=== PATIENT | female | born 1930 | race Caucasian/White ===

== ENCOUNTER 2018-10-18 09:20 | Inpatient (IN) | payer OTHER ==
[~2018-10-18] VITALS: Ht 149.9 cm; Wt 46.6 kg
[2018-10-18 09:21] VITALS: BP 186/81
[2018-10-18 09:56] LABS: ABSOLUTE NEUTROPHILS 5.7 thou/uL (1.4-8.2); BASOPHILS 0.8 % (0.0-2.0); EOSINOPHILS 1.8 % (0.0-3.0); HEMATOCRIT 42.1 % (37.0-47.0); LYMPHOCYTES 21.9 % (24.0-44.0); MCH 30.4 pg (26.0-34.0); MCHC 33.2 g/dL (28.0-37.0); MCV 91.5 fL (80.0-100.0); MONOCYTES 5.5 % (1.0-8.0); PLATELET COUNT 322 thou/uL (150-400); RBC 4.61 mil/uL (4.20-5.00); RDW 16.9 % (10.5-14.5); WBC 8.2 thou/uL (4.0-11.0)
[2018-10-18 09:57] LABS: URINE BILIRUBIN NEGATIVE (Negative); URINE BLOOD 1+ (Negative); URINE CLARITY CLOUDY; URINE COLOR YELLOW; URINE GLUCOSE-RANDOM* NEGATIVE (Negative); URINE KETONES NEGATIVE (Negative); URINE LEUKOCYTES 3+ (Negative); URINE NITRITE POSITIVE (Negative); URINE PROTEIN (DIPSTICK) TRACE (Negative); URINE UROBILINOGEN 0.2 E.U./dl (0.2-1.0)
[2018-10-18 10:04] LABS: CALCIUM 9.7 mg/dL (8.5-10.1); CREATININE 0.8 mg/dL (0.6-1.0); POTASSIUM 4.3 mmol/L (3.5-5.1)
[2018-10-18] MEDS ORDERED: ASPIR 8181 MG PO (10:06)
[2018-10-18] MEDS ORDERED: LIPITOR40 MG PO (10:06)
[2018-10-18] MEDS ORDERED: SIMETHICONE1 ML PO (10:07)
[2018-10-18] MEDS ORDERED: UNICOMPLEX M TA1 TA1 PO (10:08)
[2018-10-18] MEDS ORDERED: JUVEN PACKET1 EAC1 PO (10:08)
[2018-10-18] MEDS ORDERED: SENNA8.6 MG PO (10:08)
[2018-10-18] MEDS ORDERED: BACLOFEN 10MG T10 MG PO (10:09)
[2018-10-18] MEDS ORDERED: VITAMINC500 PO (10:09)
[2018-10-18] MEDS ORDERED: TRAMADOL 50 MG50 MG PO (10:09)
[2018-10-18] MEDS ORDERED: APAP650 PO (10:09)
[2018-10-18 10:10] LABS: ALBUMIN 3.2 g/dL (3.4-5.0); TOTAL BILIRUBIN 0.2 mg/dL (<0.1-1.0); TOTAL PROTEIN 8.4 g/dL (6.4-8.2)
[2018-10-18] MEDS ORDERED: FLORASTOR250 MG PO (10:10)
[2018-10-18] MEDS ORDERED: RISPERDAL0.5 MG PO (10:10)
[2018-10-18] MEDS ORDERED: REMERON15 MG PO (10:10)
[2018-10-18] MEDS ORDERED: NORVASC5 MG PO (10:11)
[2018-10-18] MEDS ORDERED: PEPCID20 MG PO (10:11)
[2018-10-18 10:14] LABS: SQUAMOUS 4-10 Moderate /LPF (0-3); TRANSITIONAL EPITHEL CELL 0-3 Few /LPF (None Seen); URINE WBC >25 Many /HPF (0-5)
[2018-10-18 10:15] LABS: BACTERIA >30 Many /HPF (None Seen); CRYSTALS None Seen /LPF (None Seen); URINE RBC None Seen /HPF (0-2)
[2018-10-18 10:23] LABS: CASTS None Seen /LPF (None Seen)
--- NOTE | 2018-10-18 12:37 | EKG ---
[place] [address] [facility] [place] [address] ELECTROCARDIOGRAM REPORT Name: MINNIE FERRARA Room #: 170-3 ADM IN .R.#: [id number] ������������������ Admission: 10/18/18 ������������������ Attend Phys: Danny Abdalla MD Discharge: ������������������ Date of : 34 Report #: [id number] ����������������������������������������������������������������� [id number] THIS REPORT FOR: //name// [facility] ED Test Date: 2018-10-18 Test Time: 10:29:33 Pat Name: MINNIE FERRARA Department: Room: Gender: F State Assessed Properties Director: TSTPHONG : 1930 Requested By: Bonny Schulte Order Number: [id number] MD: Gil Delaney Measurements Intervals [place] Rate: 65 P: 7 OR: 156 QRS: -1 QRSD: 91 T: 33 QT: 391 QTc: 407 Interpretive Statements Sinus rhythm Atrial premature complexes Poor R wave progression No previous ECG available for comparison Electronically Signed On 10-18-2018 12:36:57 CDT by Gil Delaney [email or web address] ��������������������������������������������� <ELECTRONICALLY SIGNED> ���������������������������������������� By: Gil Delaney MD, [facility] ��������������������������������������������� 10/18/18 1236 1029 28 Gil Delaney MD, FACC /EPI
--- NOTE | 2018-10-18 14:34 | EKG ---
[address] [address] ELECTROCARDIOGRAM REPORT Name: ALEMMINNIE Guillen Room #: 170-3 ADM IN M.R.#: [id number] ������������������ Admission: 10/18/18 ������������������ Attend Phys: Danny Abdalla MD Discharge: ������������������ Date of : 34 Report #: [id number] ����������������������������������������������������������������� [id number] THIS REPORT FOR: //name// [facility] ED Test Date: 2018-10-18 Test Time: 14:09:31 Pat Name: MINNIE FERRARA Department: Room: 170 3 Gender: F Assistant Corporation Counsel: pretty : 1930 Requested By: Zahraa Sanchez Order Number: [id number] MD: Rj Adams Measurements Intervals [place] Rate: 154 P: 0 AR: 73 QRS: -10 QRSD: 87 T: 45 QT: 279 QTc: 447 Interpretive Statements Supraventricular tachycardia Abnormal R-wave progression, late transition Compared to ECG 10/18/2018 10:29:33 Sinus rhythm no longer present Atrial premature complex(es) no longer present Poor R-wave progression no longer present Electronically Signed On 10-18-2018 14:33:45 CDT by Rj Adams [email or web address] ��������������������������������������������� <ELECTRONICALLY SIGNED> ���������������������������������������� By: Rj Adams MD ��������������������������������������������� 10/18/18 1433 1409 1409 Rj Adams MD /EPI
[2018-10-18 17:20] VITALS: BP 145/82
[2018-10-18 17:25] VITALS: BP 167/66
--- NOTE | 2018-10-18 18:44 | NUR ---
TO UNIT FROM Rick, ACCOMPANIED BY SAMUEL AND ALEX MCKEE. REPORT FROM RAFI. PATIENT DENIES PAIN BUT YELLS OUT SPORADICALLY AND THEN DENYING NEEDS. POSITIONED FOR COMFORT. DARYL TOVAR. WILL REPORT TO ALEX KNOX.
[2018-10-18 19:07] VITALS: BP 151/64
[2018-10-18 19:10] VITALS: BP 151/64
[2018-10-19 00:12] VITALS: BP 116/62
[2018-10-19 01:00] VITALS: BP 116/62
--- NOTE | 2018-10-19 02:47 | NUR ---
ASSUMED PT CARE AT SHIFT CHANGE. PT CONFUSED, ORIENTED TO SELF AND OCCASIONALLY TO PLACE. NO COMPLAINTS OF SOB. PT COMPLAINED OF LEFT HEEL PAIN, PAIN MEDICATION GIVEN WHICH SEEMED TO HELP. ADMISSION COMPLETED. UNABLE TO RECONCILE MEDS WITH PATIENT. FALL PRECAUTIONS IN PLACE. CLOSE TO NURSING STATION FOR CLOSE MONITORING. PT RESTED WELL THROUGH THE NIGHT. [id number], HOURLY ROUNDING. AFIB ON THE MONITOR, CONVERTED TEMPORARILY TO SR. CARDIZEM DRIP MAINTAINED. VITAL SIGNS REMAIN STABLE. ASSESSMENT CHARTED. WILL CONTINUE TO MONITOR.
[2018-10-19 04:01] LABS: ALBUMIN 2.7 g/dL (3.4-5.0); CALCIUM 9.4 mg/dL (8.5-10.1); CREATININE 0.6 mg/dL (0.6-1.0); MAGNESIUM 1.8 mg/dL (1.8-2.4); POTASSIUM 3.8 mmol/L (3.5-5.1); TOTAL BILIRUBIN 0.4 mg/dL (<0.1-1.0); TOTAL PROTEIN 7.1 g/dL (6.4-8.2)
[2018-10-19 04:08] LABS: CHOLESTEROL 137 mg/dL (<200); HDL CHOLESTEROL 42 mg/dL (>40); LDL CHOLESTEROL 66 mg/dL (<100); SERUM ASSESSMENT Slight Lipemia; TC:HDL 3.3 Ratio (Not establshd); TRIGLYCERIDE 147 mg/dL (<150); VLDL 29 mg/dL (<40)
[2018-10-19 04:57] VITALS: BP 113/44
[2018-10-19 07:00] VITALS: BP 138/56
--- NOTE | 2018-10-19 09:57 | 2DMMODE ---
[facility] [address] [place] [address] 2 D/M-MODE ECHOCARDIOGRAM Name: ALIZE FERRARAHERIBERTO Guillen Room #: 202-P [facility]#: [id number] ������������� Admission: 10/18/18 ������������� Attend Phys: Danny Abdalla MD Discharge: ��� ������������� ��� Date of : 34 Date of Service: 10/19/18 0957 �� Report #: [id number] �������� ��������������������������������������������[id number] THIS REPORT FOR: //name// APPROVED REPORT Study performed: 10/19/2018 08:52:57 EXAM: Comprehensive 2D, Doppler, and color-flow Echocardiogram Patient Location: In-Patient Room #: 202 Status: routine BSA: 1.37 HR: 62 bpm BP: 113/44 mmHg Rhythm: Atrial Flutter Other Information Study Quality: Adequate Indications Syncope 2D Dimensions RVDd: 31.66 mm IVSd: 12.76 (7-11mm) LVOT Diam: 18.56 (18-24mm) LVDd: 32.78 mm PWd: 13.23 (7-11mm) Ascending Ao: 31.07 (22-36mm) LVDs: 18.86 (25-40mm) Aortic Root: 29.70 mm IVC: 14.00 mm Volumes Left Atrial Volume (Systole) Single Plane 4CH: 58.42 mL Single Plane 2CH: 65.90 mL LA ESV Index: 51.00 mL/m2 Aortic Valve AoV Peak Brandon.: 1.54 m/s AO Peak Gr.: 9.47 mmHg LVOT Max P.64 mmHg LVOT Max V: 1.08 m/s DE Vmax: 1.89 cm2 Mitral Valve E/A Ratio: 0.9 MV Decel. Time: 316.91 ms MV E Max Brandon.: 0.97 m/s [facility] [email or web address] [address] 2 D/M-MODE ECHOCARDIOGRAM Name: MINNIE FERRARA Room #: 202-P [facility]..#: [id number] ������������� Admission: 10/18/18 ������������� Attend Phys: Danny Abdalla MD Discharge: ��� ������������� ��� Date of : 34 Date of Service: 10/19/18 0957 �� Report #: [id number] �������� ��������������������������������������������[id number] MV A Brandon.: 1.07 m/s MV PHT: 91.90 ms IVRT: 119.95 ms Pulmonary Valve PV Peak Brandon.: 0.95 m/s PV Peak Gr.: 3.59 mmHg Pulmonary Vein P Vein S: 0.46 m/s P Vein A: 0.22 m/s P Vein D: 0.26 m/s P Vein A Dur.: 115.3 msec P Vein S/D Ratio: 1.77 Tricuspid Valve TR Peak Brandon.: 2.64 m/s TR Peak Gr.: 27.81 mmHg PA Pressure: 33.00 mmHg Left Ventricle The left ventricle is normal size. Mild to moderate concentric left ventricular hypertrophy. The left ventricular systolic function is normal. The left ventricular ejection fraction is within the normal range. LVEF is 55%. Mild diastolic dysfunction is present (impaired relaxation pattern). Right Ventricle The right ventricle is normal size. The right ventricular systolic function is normal. Atria Left atrium is severely dilated. Right atrium is borderline dilated. Aortic Valve The Aortic valve is sclerotic. No aortic regurgitation is present. There is no aortic valvular stenosis. Mitral Valve Mitral valve leaflets are thickened. Mild mitral regurgitation. No evidence of mitral valve stenosis. Tricuspid Valve The tricuspid valve is normal in structure. Mild tricuspid regurgitation. Pulmonic Valve The pulmonary valve is normal in structure. Trace pulmonic [facility] [address] [place] [address] 2 D/M-MODE ECHOCARDIOGRAM Name: MINNIE FERRARA Room #: 202-P [facility] IN ..#: [id number] ������������� Admission: 10/18/18 ������������� Attend Phys: Danny Abdalla MD Discharge: ��� ������������� ��� Date of : 34 Date of Service: 10/19/18 0957 �� Report #: [id number] �������� ��������������������������������������������[id number] regurgitation. Great Vessels The aortic root is normal in size. IVC is normal in size and collapses >50% with inspiration. Pericardium Trace pericardial effusion. <Conclusion> The left ventricle is normal size. Mild to moderate concentric left ventricular hypertrophy. The left ventricular systolic function is normal. Mild diastolic dysfunction is present (impaired relaxation pattern). The right ventricle is normal size. Left atrium is severely dilated. Right atrium is borderline dilated. The Aortic valve is sclerotic. Mild mitral regurgitation. Mild tricuspid regurgitation. Trace pericardial effusion. ��������������������������������������������� <ELECTRONICALLY SIGNED> ���������������������������������������� By: Zander Heaton MD ��������������������������������������������� 10/19/1857 Zander Heaton MD /INF
--- NOTE | 2018-10-19 13:47 | NUR ---
PT ALERT AND ORIENTED TIMES TWO. VSS. 95%RA, SR ON TELE. CARDIZEM GTT DISCONTINUED THIS MORNING PO MEDICATIONS GIVEN. PT C/O PAIN MEDICATIONS GIVEN WITH SOME RELEIF. PT TOLERATES MEDS AND MEALS. PT WORKED WELL WITH PT/OT UP SITTING IN THE CHAIR. PT TOLERATES MEDS AND MEALS. PT DAUGHTER AT BEDSIDE. PT SLOWLY PROGRESSING TOWRADS POC GOALS.
[2018-10-19 16:00] VITALS: BP 157/73
[2018-10-19 20:12] VITALS: BP 130/45
[2018-10-20 04:55] VITALS: BP 157/61
--- NOTE | 2018-10-20 05:11 | NUR ---
ASSUMED PT CARE AT 1900 WITH NO SIGN OF DISTRESS. PT IS ALERT BUT CONFUSED. NO FAMILY AT BEDSIDE. PT IS STABLE. ASSESSMENT COMPLETED AND CHARTED. HEART RATE IN NSR. SCHEDULED MEDS ADMINISTERD TO PT. SCHEDULED MEDS ADMINISTERED TO PT. PT TOLEATRATED PO INTAKE. FALL PRECAUTION IN PLACE. DENIES ANY NEEDS AT THIS TIME.
[2018-10-20 07:31] VITALS: BP 185/57
[2018-10-20 11:45] VITALS: BP 160/60
--- NOTE | 2018-10-20 15:07 | NUR ---
PT ALERT AND ORIENTED TIMES THREE WITH PERIODS OF CONFUSION. VSS, 96%RA, SR ON TELE. C/O PAIN PRN MEDICATIONS GIVEN WITH SOME RELEIF. PT TOLERATES MEDS AND MEALS. PT DAUGHTER AT BEDSIDE. PT SLOWLY PROGRESSING TOWRADS POC GOALS.
--- NOTE | 2018-10-20 16:08 | NUR ---
met with patient she is ltc resident at [facility]. Sp with admissions at [facility] and sent updates on care. Left dtr message to call casemgt. Plan return to facility once stable.
[2018-10-20 16:38] VITALS: BP 162/66
[2018-10-20 19:43] VITALS: BP 148/47
[2018-10-21 04:25] VITALS: BP 179/69
--- NOTE | 2018-10-21 06:32 | NUR ---
ASSUMED PT CARE AT 1900 WITH NO SIGN OF DISTRESS NOTED IN PT. PT IS ALERT BUT CONFUSED, DENIES ANY NEED AT THIS TIME, SCHEDULED MEDS ADMINISTERED TO PT. NO SIGN OF DISTRESS NOTED. PT IS STABLE.
--- NOTE | 2018-10-21 07:11 | NUR ---
ASSUMED PT CARE AT 1900. NO SIGN OF DISTRESS OF DISTRESS NOTED IN PT. PT IS ALERT BUT CONFUSED. CONTINUE POC.
[2018-10-21 07:41] VITALS: BP 165/73
--- NOTE | 2018-10-21 09:53 | NUR ---
WOUND CARE CONSULT; A WOUND TO THE LEFT POSTERIOR HEEL IDENTIFIED. THIS WOUND WAS NOTED ON ADMISSION. THIS PATIENT IS CONFUSED. THE PATIENT KEEPS THIS EXTREMITY TUCKED IN CLOSE TO HER AT ALL TIMES ALTHOUGH SHE IS NOT CONTACTED AND CAN EXTEND THE LEG. THE PATIENT CAN FOLLOW COMMANDS. THE AREA IS OPEN BUT SCABLIKE DEBRIS IS PRESENT. RECOMMENDATIONS; ZAIN Navarro/W/F ALMA DELIA JOHNSON PRESENT.
[2018-10-21] MEDS ORDERED: PACERONE 200 M200 M1 PO (09:59)
[2018-10-21] MEDS ORDERED: ASPIRIN325 PO (09:59)
[2018-10-21] MEDS ORDERED: MACROBID 100 M100 M2 PO (10:01)
[2018-10-21 11:32] VITALS: BP 133/53
--- NOTE | 2018-10-21 11:37 | NUR ---
Patient to dc today back to [facility]. DP called [facility]/admissions at and [facility] will cb with transportation, no oxygen, stretcher. DP faxed discharge paperwork to facility and to intensive care unit nurse 2n for chart copy envelope.
--- NOTE | 2018-10-21 13:29 | NUR ---
Pt has been dc'd back to [facility] care at [facility] pending final arrangments. The pt is at her baseline and skilled rehab is not recommended. Dc orders are being updated and to be faxed by the dc senior planner. [facility] will arrange transport for the pt's return later this afternoon. The care team has been updated. Dtr to be here this afternoon as well.
--- NOTE | 2018-10-21 13:47 | NUR ---
PT ALERT AND ORIENTED TIMES THREE WITH PERIODS OF CONFUSION. VSS, 97%RA, SR ON TELE. PT TOLERATES MEDS AND MEALS. PT TURNED FREQUENTLEY THIS SHIFT. DRESSING TO RIGHT HEEL CHANGED PER WOUND CARE NURSE. PLANS TO RETURN TO [facility] TODAY. DAUGHTER AT BEDSIDE. WILL CONTINUE TO MONITOR.
[2018-10-21 14:55] VITALS: BP 150/73
== END 2018-10-21 16:13 | DRG 308 ==
LOC: ER 09:20 → 2N 12:22 → EROBS 12:22 → 2N 17:25
PROVIDERS: Emergency Medicine; Nurse Practitioner; ADMIT Hospitalist
DX: I48.4 Atypical atrial flutter (principal); E43 Unspecified severe protein-calorie malnutrition; G93.41 Metabolic encephalopathy; N39.0 Urinary tract infection, site not specified; F30.9 Manic episode, unspecified; I69.354 Hemiplegia and hemiparesis following cerebral infarction affecting left non-dominant side; I47.1 Supraventricular tachycardia; I10 Essential (primary) hypertension; E78.5 Hyperlipidemia, unspecified; K59.00 Constipation, unspecified; H54.8 Legal blindness, as defined in USA; R13.10 Dysphagia, unspecified; I25.10 Atherosclerotic heart disease of native coronary artery without angina pectoris; G47.00 Insomnia, unspecified; R00.1 Bradycardia, unspecified; I48.91 Unspecified atrial fibrillation; Z88.2 Allergy status to sulfonamides; Z88.8 Allergy status to other drugs, medicaments and biological substances; I25.2 Old myocardial infarction; Z79.82 Long term (current) use of aspirin; Z87.891 Personal history of nicotine dependence; Z79.899 Other long term (current) drug therapy
CPT/HCPCS: 10081

== ENCOUNTER 2020-02-25 15:31 | Inpatient (IN) | payer OTHER ==
[~2020-02-25] VITALS: Ht 160 cm; Wt 55.3 kg
[~2020-02-25 15:31] MED LIST: APAP650 PO; ASPIR 8181 MG PO; ASPIRIN325 PO; BACLOFEN 10MG T10 MG PO; FLORASTOR250 MG PO; JUVEN PACKET1 EAC1 PO; LIPITOR40 MG PO; MACROBID 100 M100 M2 PO; NORVASC5 MG PO; PACERONE 200 M200 M1 PO; PEPCID20 MG PO; REMERON15 MG PO; RISPERDAL0.5 MG PO; SENNA8.6 MG PO; SIMETHICONE1 ML PO; TRAMADOL 50 MG50 MG PO; UNICOMPLEX M TA1 TA1 PO; VITAMINC500 PO
[2020-02-25 15:46] VITALS: BP 104/52
[2020-02-25 15:51] LABS: ABSOLUTE NEUTROPHILS 14.8 thou/uL (1.4-8.2); BASOPHILS 0.5 % (0.0-2.0); HEMATOCRIT 49.4 % (37.0-47.0); HEMOGLOBIN 16.3 gm/dL (12.0-15.0); LYMPHOCYTES 4.5 % (24.0-44.0); MCH 29.3 pg (26.0-34.0); MONOCYTES 3.3 % (1.0-8.0); PLATELET COUNT 348 thou/uL (150-400); POLYS 91.7 % (36.0-66.0); RBC 5.55 mil/uL (4.20-5.00); RDW 16.5 % (10.5-14.5); WBC 16.1 thou/uL (4.0-11.0)
[2020-02-25 16:10] LABS: ALBUMIN 2.1 g/dL (3.4-5.0); CALCIUM 8.9 mg/dL (8.5-10.1); DIRECT BILIRUBIN 0.3 mg/dL (<0.1-0.2); POTASSIUM 4.4 mmol/L (3.5-5.1); TOTAL BILIRUBIN 0.7 mg/dL (0.2-1.0); TOTAL PROTEIN 8.3 g/dL (6.4-8.2)
[2020-02-25 16:43] LABS: BE(vivo) -4.6 mmol/L (-2 to +3); HCO3 19.8 mmol/L (22.0-26.0); PCO2 35.1 mmHg (35.0-45.0); PO2 165.7 mmHg (80.0-100.0); pH 7.369 (7.360-7.450); sO2 99.1 % (92.0-98.0)
[2020-02-25 18:26] LABS: ALBUMIN 1.7 g/dL (3.4-5.0); TOTAL PROTEIN 6.6 g/dL (6.4-8.2)
[2020-02-25 18:51] LABS: TSH 0.078 uIU/mL (0.358-3.740)
[2020-02-25] MEDS ORDERED: LEVOXYL75 MCG PO (19:19)
--- NOTE | 2020-02-25 21:39 | NUR ---
PATIENT TRANSPORTED TO CT WITH FINAL ASSEMBLER, RT AND NET DEVELOPER CONTRACT. PATIENT REMAINED ON BIPAP FOR TRANSFER
--- NOTE | 2020-02-26 07:58 | NUR ---
MICRO CALLED TO STATE THAT PT HAS GRAM (+) COCCYI, CONSTENTENT WITH STAFF. FOR 1 OUT OF 2 SETS RAN AT THIS TIME
[2020-02-26 09:04] LABS: HEMATOCRIT 44.2 % (37.0-47.0); MCH 28.4 pg (26.0-34.0); MCHC 31.7 g/dL (28.0-37.0); MCV 89.5 fL (80.0-100.0); RBC 4.94 mil/uL (4.20-5.00); RDW 16.4 % (10.5-14.5); WBC 13.2 thou/uL (4.0-11.0)
--- NOTE | 2020-02-26 09:08 | EKG ---
[facility] [place] [address] ELECTROCARDIOGRAM REPORT Name: MINNIE FERRARA Room #: 170- ADM IN M.R.#: [id number] Admission: 02/25/20 Attend Phys: Duncan Coats MD Discharge: Date of : 34 Report #: [id number] THIS REPORT FOR: cc: Stanley Foy MD, Srinath MD Santiago,Venkat FOSTER [facility] ~ THIS REPORT FOR: //name// [facility] ED Test Date: 2020-02-25 Test Time: 15:50:11 Pat Name: MINNIE FERRARA Department: Room: 170 Gender: F Heat Curer: ALEX : 1930 Requested By: Bonny Schulte Order Number: [id number] MD: Venkat Funes Measurements Intervals [place] Rate: 109 P: -49 HI: 162 QRS: -45 QRSD: 81 T: 33 QT: 377 QTc: 508 Interpretive Statements SINUS TACHYCARDIA Consider left ventricular hypertrophy Prolonged QT interval Compared to ECG 10/18/2018 14:09:31 Prolonged QT interval now present Supraventricular tachycardia no longer present Electronically Signed On 02-26-2020 9:08:16 CIRCUIT CLERK by Venkat Funes [email or web address] <ELECTRONICALLY SIGNED> By: Venkat Funes MD, FACC 02/26/20 0908 49 1550 Venkat Funes MD, FACC /EPI
[2020-02-26 09:11] LABS: CALCIUM 7.8 mg/dL (8.5-10.1); CREATININE 4.3 mg/dL (0.6-1.0); MAGNESIUM 2.4 mg/dL (1.8-2.4)
[2020-02-26 09:12] LABS: POTASSIUM 3.3 mmol/L (3.5-5.1)
[2020-02-26 14:23] LABS: URINE BLOOD 3+ (Negative); URINE CLARITY CLOUDY; URINE COLOR YELLOW; URINE GLUCOSE-RANDOM* TRACE (Negative); URINE KETONES TRACE (Negative); URINE LEUKOCYTES TRACE (Negative); URINE NITRITE POSITIVE (Negative); URINE PROTEIN (DIPSTICK) 1+ (Negative); URINE SPECIFIC GRAVITY >= 1.030 (1.005-1.035)
[2020-02-26 14:27] LABS: ICTOTEST (BILI CONFIRMATORY) Negative (Negative); URINE BILIRUBIN NEGATIVE (Negative)
[2020-02-26 14:38] LABS: AMORPHOUS URATES Moderate /LPF (None Seen); CASTS None Seen /LPF (None Seen); SQUAMOUS 4-10 Moderate /LPF (0-3); URINE RBC 3-10 Few /HPF (0-2)
[2020-02-26 14:39] LABS: BACTERIA 1-9 Few /HPF (None Seen); URINE WBC 6-15 Few /HPF (0-5)
[2020-02-26 14:49] LABS: URINE CREATININE-RANDOM* 98.6 mg/dL
[2020-02-26 14:50] LABS: PROT/CREAT RATIO 2.5; URINE CREATININE-RANDOM* 98.3 mg/dL; URINE PROTEIN-RANDOM* 248.7 mg/dL (<11.9)
--- NOTE | 2020-02-26 17:01 | NUR ---
VAT CONSULTED FOR A CL FOR THIS PT IN THE ER WAITING FOR AN ICU BED. SHE IS COVID+ AND IN RENAL FAILURE. A 6FTLCL PLACED RT IJ PLEASE SEE NI FOR DETAILS
[2020-02-27] VITALS (7 sets, daily range): BP systolic 105–129; BP diastolic 52–63
[2020-02-27 04:57] LABS: HEMATOCRIT 42.5 % (37.0-47.0); HEMOGLOBIN 13.5 gm/dL (12.0-15.0); MCH 28.3 pg (26.0-34.0); MCHC 31.7 g/dL (28.0-37.0); MCV 89.4 fL (80.0-100.0); RBC 4.76 mil/uL (4.20-5.00); RDW 17.1 % (10.5-14.5); WBC 14.2 thou/uL (4.0-11.0)
[2020-02-27 05:19] LABS: CALCIUM 7.3 mg/dL (8.5-10.1); CREATININE 4.5 mg/dL (0.6-1.0); MAGNESIUM 2.1 mg/dL (1.8-2.4); POTASSIUM 3.5 mmol/L (3.5-5.1)
[2020-02-27 17:13] LABS: BE(vivo) -10.9 mmol/L (-2 to +3); HCO3 13.8 mmol/L (22.0-26.0); PCO2 28.1 mmHg (35.0-45.0); pH 7.309 (7.360-7.450); sO2 93.2 % (92.0-98.0)
[2020-02-28] VITALS (105 sets, daily range): BP systolic 80–160; BP diastolic 31–72
--- NOTE | 2020-02-28 03:19 | NUR ---
>>>2307 PT ARRIVED ON FLOOR VIA TRANSPORTATION CART ACCOMPANIED WITH ER STAFF. IS LETHARGIC, CONTINUES ON BIPAP, FIO2 90%. VS WNL. DAUGHTER-DPOA NOTIFIED OF PT TRANSFER (LEFT MESSAGE ON PHONE). NO PAIN OR DISCOMFORT NOTED. TOLERATING BIPAP WITH NO COMPLICATIONS. WILL CONTINUE TO MONITOR.
[2020-02-28 05:33] LABS: HEMATOCRIT 40.6 % (37.0-47.0); HEMOGLOBIN 12.8 gm/dL (12.0-15.0); MCH 28.2 pg (26.0-34.0); MCHC 31.4 g/dL (28.0-37.0); MCV 89.8 fL (80.0-100.0); RBC 4.52 mil/uL (4.20-5.00); RDW 17.4 % (10.5-14.5); WBC 17.6 thou/uL (4.0-11.0)
[2020-02-28 06:01] LABS: CALCIUM 6.8 mg/dL (8.5-10.1); CREATININE 4.8 mg/dL (0.6-1.0); POTASSIUM 3.6 mmol/L (3.5-5.1)
--- NOTE | 2020-02-28 07:53 | HC ---
[facility] [place] [address] CONSULTATION Name: MINNIE FERRARA [facility] ADM IN .R.#: [id number] Admission: 02/25/20 Attend Phys: Duncan Coats MD Discharge: Date of : 32 Report #: [id number] THIS REPORT FOR: cc: Stanley Foy MD, Srinath MD Barry,Yo Lara MD ~ DATE OF SERVICE: 02/27/2020 INFECTIOUS DISEASE CONSULTATION ATTENDING PHYSICIAN: Dr. Coats. REASON FOR EVALUATION: COVID-19 infection, complicated by pneumonitis and chronic respiratory failure with sepsis. HISTORY OF SUBJECTIVE: Chart reviewed, the patient examined. 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 She is living in a facility. She apparently was admitted through the Emergency Room with complaints of mental status changes as well as hypoxemia with her sats being in the 70s. She was given supplemental oxygen, now is on BiPAP at 100%. She is not responsive at this point. She was confirmed to have COVID-19 positive testing and 1 out 2 positive blood cultures with what appears to be coag-negative staph. She now was found to be in renal failure with a creatinine of 4.0 and a sodium of 163. Lactic acid was elevated at 3.0. CT of the chest did confirm extensive bilateral mixed ground glass interstitial infiltrates. She is empirically placed on common therapy including piperacillin, tazobactam as well as vancomycin. ALLERGIES: SULFA, ORAL ESTROGENS, PHENAZOPYRIDINE. CURRENT MEDICATIONS: Include insulin lispro, famotidine, methylprednisolone, vancomycin, ipratropium, albuterol, aspirin, amiodarone, amlodipine, atorvastatin, Zosyn, mirtazapine. PAST MEDICAL HISTORY: Includes hypertension, hyperlipidemia, known coronary artery disease with previous stroke with left-sided weakness, history of atrial fibrillation. SOCIAL HISTORY: She is a former smoker. REVIEW OF SYSTEMS: Unobtainable. PHYSICAL EXAMINATION: [facility] [address] [place] [address] CONSULTATION Name: MINNIE FERRARA Room #: 243-P [facility] IN ..#: [id number] Admission: 02/25/20 Attend Phys: Duncan Coats MD Discharge: Date of : 32 Report #: [id number] GENERAL: She is critically ill. She is lying supine. She is maintained on BiPAP. She is nonresponsive even to physical stimuli. She appears chronically ill, undernourished. VITAL SIGNS: Temperature 97.6, pulse 89, respirations 13, blood pressure 108/58. SKIN: Warm, dry. NECK: Appears to be supple. There is a BiPAP in place. LUNGS: Scattered coarse breath sounds. HEART: Distant, irregular. ABDOMEN: Mildly distended, soft. There are no peritoneal signs. GENITOURINARY AND RECTAL: Deferred. EXTREMITIES: Does have cool distal lower extremities. LABORATORY AND X-RAY DATA: Initial CBC: White count of 16.1, H and H 16.3 and 49.4, platelets of 348. Electrolytes: Sodium 163, potassium 4.4, chloride 120, bicarbonate is 24, anion gap of 19, BUN and creatinine 104 and 4.0. AST 124, ALT of 74. Total protein 83, albumin of 2.1, estimated GFR of 11. Lactic acid initially was 3.0, repeat was 2.6. Blood cultures 1 out of 2 with coag-negative staph. Repeat electrolytes: Sodium 155, potassium 3.5, chloride 118, bicarbonate is 16, anion gap of 21, BUN and creatinine of 115 and 4.5. ASSESSMENT AND PLAN: Septic shock with multiorgan failure, is positive COVID-19. At this point, she is unlikely to benefit from antiviral therapy. I was informed that we do not have remdesivir available and we will adjust antimicrobial therapy given her renal failure. Check a vancomycin level, appears to have progressive multiple organ failure. Noted there was consideration for palliative care. I do not think that is unreasonable given the small likelihood that this is significant reversibility to her clinical picture. <ELECTRONICALLY SIGNED> By: Yo Mcghee MD 02/28/20 0753 1027 2119 Yo Mcghee MD /nt
--- NOTE | 2020-02-28 11:53 | NUR ---
cm unable to visit with [facility] on ppe. covid r/o. she is requiring use of bipap. noted in chart from [facility]. will cont following as needed for dc needs.
--- NOTE | 2020-02-28 15:35 | NUR ---
PT ON BIPAP, SETTINGS UNCHANGED, 18/6 RATE OF 14. PT DOES NOT FOLLOW COMMANDS, NO SPONTANEOUS EYE OPENING, PUPILS NON REACITIVE 4MM, AFEBRILE, POSITIVE COUGH, VERY LITTLE IF ANY MOVEMENT OF EXTREMITIES. SKIN IS MOTTLED AND COOL TO THE TOUCH. SMALL BM TODAY. OLIGURIC. MRI/ CT HAS BEEN DELAYED PER DR HART. PT AND FAMILY HAVE BEEN UPDATED AND EDUCATED ON PT CONDITION AND POC. PT NOT PROGRESSING TOWARDS POC.
--- NOTE | 2020-02-28 22:29 | NUR ---
ASSUMED PATIENT CARE AT 1900. LARGE BOWEL MOVEMENT. UNRESPONSIVE. O2 SATS DROPPED, INCREASED FIO2 TO 100%. DR MURPHY NOTIFIED. STATES TO KEEP HER ON BIPAP UNTIL INTUBATION NEEDED. FAMILY CALLED. CONFIRMED THEY WOULD WANT INTUBATION. AT THIS TIME, HEART RATE IS REDUCED. BP IS LOWER. CRASH CART AT BEDSIDE. NOT PROGRESSING TOWARDS POC GOALS.
[2020-02-29] VITALS (52 sets, daily range): BP systolic 109–152; BP diastolic 38–50
[2020-02-29 04:56] LABS: HEMOGLOBIN 11.8 gm/dL (12.0-15.0); MCH 28.1 pg (26.0-34.0); MCHC 29.6 g/dL (28.0-37.0); RBC 4.22 mil/uL (4.20-5.00); RDW 19.3 % (10.5-14.5)
[2020-02-29 05:42] LABS: CALCIUM 6.8 mg/dL (8.5-10.1); PHOSPHORUS 12.7 mg/dL (2.5-4.9); POTASSIUM 5.8 mmol/L (3.5-5.1)
--- NOTE | 2020-02-29 06:42 | NUR ---
PER CHART REVIEW, PT. PRESENTS WITH DECLINING STATUS. WILL PLACE PT. ON HOLD AND REQUEST NEW ORDERS IF PT. STATUS IMPROVES.
--- NOTE | 2020-02-29 07:44 | NUR ---
ORDERS FOR EVAL AND TREAT HOWEVER Pt CONTINUES TO DECLINE AND ON BIPAP. WILL PLACE ON HOLD AND AWAIT NEW ORDERS TO RESUME IF APPROPRIATE
--- NOTE | 2020-02-29 09:27 | NUR ---
Chart reviewed and comfort measures to be discussed. Defer nutrition evaluation at this time. Follow plan of care
--- NOTE | 2020-02-29 10:24 | NUR ---
DR MURPHY AT BEDSIDE AT 0800. DR MURPHY CONTACTED PT's DAUGHTER TO MAKE DISCUSS PATIENT CONTIDION AND PLAN OF CARE. DAUGHTER AGREED TO MAKE HER DNR GIVEN POOR PROGNOSIS AND PATIENT CONDITION. SPOKE TO DAUGHTER AT 0845 GIVING HER INSTRUCTIONS ON HOW SHE WOULD BE ABLE TO SEE HER MOTHER. PER DAUGHTER SHE WILL BE IN TO SEE HER THIS AFTERNOON. DR HART AT BEDSIDE AT 1025, HE REQUESTED AN UPDATE ONCE DAUGHTER ARRIVES. EPI GTT TITRATED TO MAX THROUGH SHIFT PER PULMONARY. WILL CONTINUE TO MONITOR PT.
--- NOTE | 2020-02-29 14:43 | NUR ---
PT'S DAUGHTER AT BEDSIDE AT 1320. DAUGHTER HAD BRIEF CONVERSATION WITH PATIENT'S NURSE, SHE VERBALIZED UNDERSTANDING AND WAS IN AGREEMENT WITH MAKING PT COMFORT CARE. PT'S DAUGHTER ALSO HAD BRIEF CONVERSATION WITH DR MURPHY REGARDING COMFORT CARE DECISION. PT'S DAUGHTER WAS ACCOMPANIED OUT OF ICU BY NICU RN. BEFORE RN COULD GET ORDER TO MAKE COMFORT CARE PT WENT INTO [facility] AND WAS PRONOUNCED BY TWO RN'S AT [address] HART'S ORDERS. DAUGHTER WAS THEN NOTIFIED WELL MTN AND RESPECTIVE CONSULTING PHYSICIANS.
== END 2020-02-29 13:33 | DRG 871 ==
LOC: ER 15:31 → ICU 18:02 → EROBS 18:02 → ICU 02-27 22:53
PROVIDERS: Emergency Medicine; Hospitalist; Internal Medicine Nephrology; ADMIT Internal Medicine; ATTEND Internal Medicine
PROC: 5A09457 Assistance with Respiratory Ventilation, 24-96 Consecutive Hours, Continuous Positive Airway Pressure (ICD-10-PCS; principal; 2020-02-25)
PROC: 05HY33Z Insertion of Infusion Device into Upper Vein, Percutaneous Approach (ICD-10-PCS; principal; 2020-02-25)
DX: A41.89 Other specified sepsis (principal); U07.1 COVID-19; G92 Toxic encephalopathy; N17.0 Acute kidney failure with tubular necrosis; E43 Unspecified severe protein-calorie malnutrition; J12.9 Viral pneumonia, unspecified; R65.21 Severe sepsis with septic shock; J96.01 Acute respiratory failure with hypoxia; E87.0 Hyperosmolality and hypernatremia; N39.0 Urinary tract infection, site not specified; I69.354 Hemiplegia and hemiparesis following cerebral infarction affecting left non-dominant side; G93.1 Anoxic brain damage, not elsewhere classified; I10 Essential (primary) hypertension; E78.5 Hyperlipidemia, unspecified; H54.8 Legal blindness, as defined in USA; R13.10 Dysphagia, unspecified; R53.81 Other malaise; R79.89 Other specified abnormal findings of blood chemistry; K44.9 Diaphragmatic hernia without obstruction or gangrene; I25.10 Atherosclerotic heart disease of native coronary artery without angina pectoris; R74.01 Elevation of levels of liver transaminase levels; K72.90 Hepatic failure, unspecified without coma; E87.5 Hyperkalemia; Z66 Do not resuscitate; S31.41XA Laceration without foreign body of vagina and vulva, initial encounter; J84.10 Pulmonary fibrosis, unspecified; X58.XXXA Exposure to other specified factors, initial encounter; Y93.89 Activity, other specified; I69.322 Dysarthria following cerebral infarction; Z79.82 Long term (current) use of aspirin; Z79.899 Other long term (current) drug therapy; Z88.2 Allergy status to sulfonamides; Z88.8 Allergy status to other drugs, medicaments and biological substances; Z68.21 Body mass index [BMI] 21.0-21.9, adult; Y92.89 Other specified places as the place of occurrence of the external cause; Y99.8 Other external cause status
CPT/HCPCS: 10078